=== PATIENT | female | born 2000 | race Caucasian/White ===

== ENCOUNTER 2021-11-20 17:23 | Emergency (ER) | payer OTHER ==
[~2021-11-20 17:23] MED LIST: ATROVENT HFA12.9 GM INH; MEDROL DOSEPAK 24 MG PO; ZITHROMAX250 MG PO
[2021-11-20 17:57] LABS: RED BLOOD COUNT 4.43 M/UL (4.00-5.10); WHITE BLOOD COUNT 7.8 K/UL (4.5-11.0)
[2021-11-20 18:19] LABS: BUN/CREATININE RATIO 19 (0-10)
[2021-11-20] MEDS ORDERED: ONDANSETRON ODT4 MG PO (19:22)
== END 2021-11-20 19:32 | disposition home or self-care (01) ==
LOC: ER1 17:23
PROVIDERS: Nurse Practitioner
DX: U07.1 COVID-19 (principal); F17.210 Nicotine dependence, cigarettes, uncomplicated
CPT/HCPCS: 80053; 81001; 84703; 85025; 99283; U0002